=== PATIENT | male | born 1955 | race Two or more races ===

== ENCOUNTER 2025-01-14 08:38 | Outpatient (RCR) | payer MEDICARE, SELFPAY ==
--- NOTE | 2025-01-14 09:12 | PTNOTE_ITS ---
PT OP Initial Eval Patient Information Outpatient Physical Therapy Treatment Date: 01/14/25 Visit Reasons: pain in RT knee Medical Diagnosis: M25.561 Start of Care: 01/14/25 Date of Onset: 2 months ago Smoking Status Smoking Status: Never smoker Initial Assessment Subjective: Pt is 69 yr old togolese speaking male who reports R knee pain worsening over the past 2 months. It feels tired if he walks a lot and pops when he extends the knee. 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 PLOF: pt was ambulating community distances without fatigue PMH: HTN Imaging: Xray results in chart moderate OA Pt goal: to see what's wrong with the knee Objective: R knee AROM: Flexion: 135 deg Extension: -12 deg SLR: 90 deg Strength: Quads: 4/5 HS: 4/5 Praveen's: negative Varus stress: mild gapping Anterior drawer: negative Assessment: Pt presents with some crepitus of the patella consistent with OA and tendon snapping over the lateral border. Pt has good ROM and strength of the knee and no pain with squats or during the eval today. Pt doesn't need skilled therapy since he isn't having pain and impairments such as the popping won't go away with therapy. Pt was given HEP printout. [employer] Goals Eval and D/C Treatment Plan Eval and D/C Certification Dates: 01/14/25 Procedure Charges OP PT Eval Mod Complex 30 minutes: Yes
== END 2025-02-07 23:59 | disposition home or self-care (01) ==
LOC: CPTX 08:38
PROVIDERS: PCP Registered Nurse; Referring Provider Registered Nurse; Visit Provider Registered Nurse
DX: M25.561 Pain in right knee (principal); M23.8X1 Other internal derangements of right knee; I10 Essential (primary) hypertension
CPT/HCPCS: 97162